=== PATIENT | female | born 1975 | race Caucasian/White ===

== ENCOUNTER 2016-09-23 22:04 | Observation (INO) | payer BC ==
[2016-09-23 22:04] VITALS: BMI 27.4
[2016-09-23] MEDS ORDERED: Sodium Chloride 0.9% 1,000 ML IV ONE (22:31)
--- NOTE | 2016-09-23 22:34 | C.PDOC ---
History Of Present Illness 41 y/o female with hx of endometriosis, s/p 10 abdominal surgeries for endometriosis, with total hysterectomy, appendectomy and cholecystectomy, hx sbo, presents to ED with approx 2 week hx of lower abdominal pressure and urinary frequency and urgency. today, pt started to vomit today (4 times) and have worse right sided abdominal pain. no fever or chills, last bm at 3 pm today. no vaginal discharge or bleeding. denies being currently sexually active. [pt also c/o 3 day hx of itchy rash to upper chest. started after pt went to gym and has spread a bit; better after po benadryl. denies any new lotions, soaps, jewelry. Time Seen by Provider: 09/23/16 22:17 Chief Complaint (Nursing): Abnormal Skin Integrity History Per: Patient History/Exam Limitations: no limitations Onset/Duration Of Symptoms: Days Current Symptoms Are (Timing): Worse Location Of Injury: Right: Abdomen Past Medical History Reviewed: Historical Data, Nursing Documentation, Vital Signs Vital Signs: Last Vital Signs Temp 98.1 F 09/24/16 05:54 Pulse 78 09/24/16 05:54 Resp 18 09/24/16 05:54 BP 111/71 09/24/16 05:54 Pulse Ox 98 09/24/16 05:57 - Medical History PMH: Anemia, Gastritis, Gastrointestinal Ulcer Denies: Depression, Chronic Kidney Disease Other PMH: endometriosis Surgical History: Appendectomy (2014), Cholecystectomy Other Surgeries: 10 surgeries for endometriosis, total hysterectomy, smal bowel obstruction - [facility] Procedures CENTRAL VENOUS CATHETER PLACEMENT WITH GUIDANCE (06/18/13) CLOSURE SKIN & SUBCUTANEOUS NEC (04/21/14) CYSTOMETROGRAM (01/23/13) CYSTOSCOPY NEC (01/23/13) INJECT/INFUSE ELECTROLYT (11/20/13) INJECT/INFUSE NEC (03/10/14) VENOUS CATHETERIZATION NEC (12/16/12) Family History: States: Unknown Family Hx - Social History Hx Tobacco Use: No Hx Alcohol Use: No Hx Substance Use: No - Immunization History Hx Tetanus Toxoid Vaccination: Yes (2011) Hx Influenza Vaccination: No Hx Pneumococcal Vaccination: No Review Of Systems Constitutional: Negative for: Fever, Chills Cardiovascular: Negative for: Chest Pain, Palpitations Respiratory: Negative for: Cough, Shortness of Breath Gastrointestinal: Positive for: Nausea, Vomiting, Abdominal Pain. Negative for : Diarrhea, Constipation Genitourinary: Positive for: Frequency. Negative for: Dysuria, Vaginal Discharge, Vaginal Bleeding Skin: Positive for: Rash (upper chest wall) Neurological: Negative for: Weakness, Numbness Physical Exam - Physical Exam Appears: Non-toxic, Other (uncomfortable) Skin: Normal Color, Warm, Dry Head: Atraumatic, Normacephalic Neck: Normal ROM Chest: Symmetrical, No Deformity, No Tenderness Cardiovascular: Rhythm Regular, No Murmur Respiratory: Normal Breath Sounds, No Rales, No Rhonchi, No Wheezing Gastrointestinal/Abdominal: Bowel Sounds, Soft, Tenderness (right lower quadrant tenderness), No Distention, No Guarding, No Rebound, Other (low transverse scar) Back: No CVA Tenderness Extremity: No Tenderness, No Pedal Edema Neurological/Psych: Oriented x3, Normal Speech, Normal Cognition, Normal Motor, Normal Sensation ED Course And Treatment - Laboratory Results Result Diagrams: 09/23/16 22:58 09/24/16 00:26 ECG: Interpreted By Me, Viewed By Me ECG Rhythm: Sinus Rhythm ECG Interpretation: Normal Rate From EC O2 Sat by Pulse Oximetry: 98 Pulse Ox Interpretation: Normal - CT Scan/US CT abd/pel with PO and IV contrast Other Rad Studies (CT/US): Read By Radiologist, Radiology Report Reviewed CT/US Interpretation: IMPRESSION: No acute findings. Nonvisualized appendix. Medical Decision Making Medical Decision Makin41 y/o female with urinary symptoms, vomiting, abdominal pain, hx multiple abdominal surgeries; will get labs ua/uc/upreg/ ct abdomen for pathology. sbo. 1105 pm pt developed erythema and itching to right upper arm at site of tourniquet. no urticaria. benadryl ordered. 316 am pt has asked for several doses opf pain medications. no longer vomiting. ct just resulted with no acute findings. pt to be put on ED observation for abdominal pain, will re-=eval in a few hours. 515 am pt resting comfortably, no vomiting. pt ate half a sandwich. pt is ready to go home. ED OBSERVATION Discharge: Yes Date of observation admission: 09/24/16 Time of observation admission: 03:25 - Observation admission statement Patient is being placed in observation because:: abdominal pain, for pain control and treatment of nausea - Goals of Observation Goals of observation are:: control of pain - Progress Note Progress Note: 09/24/16 03:25 pt tp be put onto ed obs for abdominal pain. 09/24/16 05:55 pt feeling better. not vomiting, will d/c Disposition Counseled Patient/Family Regarding: Diagnosis, Need For Followup, Rx Given - Disposition Disposition: HOME/ ROUTINE Disposition Time: 05:56 Condition: STABLE - Clinical Impression Clinical Impression: Abdominal pain
[2016-09-23] MEDS ORDERED: Iohexol 240 (50 ml) PO STA (22:57)
[2016-09-23] MEDS ORDERED: Sodium Chloride 0.9% 1,000 ML ONE (22:58)
[2016-09-23 23:01] LABS: BASO % 0.4 % (0.0-2.0); HEMATOCRIT 42.1 % (34.0-47.0); LYMPH # 2.1 K/uL (1.0-4.3); LYMPH % 43.9 % (20.0-40.0); MEAN CORPUSCULAR HEMOGLOBIN 30.3 pg (27.0-31.0); MEAN CORPUSCULAR HGB CONC 33.4 g/dL (33.0-37.0); MEAN PLATELET VOLUME 6.9 fL (7.2-11.7); MONO # 0.4 K/uL (0.0-0.8); MONO % 8.9 % (0.0-10.0); NRBC % 0.1 % (0.0-2.0); RED CELL DISTRIBUTION WIDTH 14.4 % (11.5-14.5); WHITE BLOOD COUNT 4.7 K/uL (4.8-10.8)
[2016-09-23 23:02] LABS: MEAN CELL VOLUME 90.7 fL (81.0-99.0)
[2016-09-23 23:07] LABS: RBC URINE < 1 /hpf (0-3); URINE BACTERIA RARE (<OCC); URINE BILIRUBIN NEGATIVE (NEGATIVE); URINE BLOOD NEGATIVE (NEGATIVE); URINE COLOR Yellow (YELLOW); URINE GLUCOSE (UA) NORMAL (Normal); URINE KETONE TRACE mg/dL (NEGATIVE); URINE LEUKOCYTE ESTERASE NEG Leu/uL (Negative); URINE PROTEIN NEGATIVE (NEGATIVE); URINE UROBILINOGEN NORMAL mg/dL (0.2-1.0); WBC URINE 3 /hpf (0-5)
[2016-09-23] MEDS ORDERED: Iohexol 240 (50 ml) ONE (23:07)
[2016-09-23] MEDS ORDERED: DiphenhydrAMINE 50 mg/ml Inj IVP STA (23:10)
[2016-09-23] MEDS ORDERED: DiphenhydrAMINE 50 mg/ml Inj ONE (23:14)
[2016-09-24 00:48] LABS: CHLORIDE 96 mmol/L (98-107); POTASSIUM 4.3 mmol/L (3.6-5.2); SODIUM 136 mmol/L (132-148)
[2016-09-24 00:50] LABS: BILIRUBIN,TOTAL 0.7 mg/dL (0.2-1.3); CARBON DIOXIDE 26 mmol/L (22-30); GFR AFRICAN-AMERICAN > 60
[2016-09-24 00:51] LABS: ALB/GLOB RATIO 1.3 (1.0-2.1); ALKALINE PHOSPHATASE 97 U/L (38-126); ALT/SGPT 49 U/L (9-52); AST/SGOT 65 U/L (14-36); BLOOD UREA NITROGEN 26 mg/dL (7-17); CALCIUM 9.3 mg/dl (8.6-10.4); GLUCOSE,RANDOM 84 mg/dL (65-105); TOTAL PROTEIN 8.6 g/dL (6.3-8.3)
[2016-09-24] MEDS ORDERED: Aluminum Hydroxide/Magnesium Hydroxide Susp (30 mL) ONE ×2 (01:23→02:09)
[2016-09-24] MEDS ORDERED: Iodixanol 320 MG/ML 100 ML BOTTLE IV ONE (01:27)
[2016-09-24] MEDS ORDERED: Aluminum Hydroxide/Magnesium Hydroxide Susp (30 mL) PO STA (01:49)
[2016-09-24] MEDS ORDERED: HYDROmorphone 0.5 mg/0.5 ml ISec IVP STA (02:52)
[2016-09-24] MEDS ORDERED: HYDROmorphone 1 mg/ml ISec ONE (02:59)
[2016-09-24 03:22] VITALS: O2SAT 98
[2016-09-24 05:55] VITALS: BP 111/71; PULSE 78; RESP 18; TEMP 98.1
--- NOTE | 2016-09-24 12:51 | CT ---
PROCEDURE: CT Abdomen and Pelvis with contrast HISTORY: Right lower quadrant pain. Relevant surgical history: Cholecystectomy, hysterectomy, COMPARISON: 12/07/2015 TECHNIQUE: Contrast dose: 100 cc Visipaque 320 Radiation dose: Total exam DLP = 277.97. MGy-cm. This CT exam was performed using one or more of the following dose reduction techniques: Automated exposure control, adjustment of the mA and/or kV according to patient size, and/or use of iterative reconstruction technique. FINDINGS: LOWER THORAX: Unremarkable. LIVER: Hepatic steatosis. No focal masses. No intrahepatic bile duct dilatation or perihepatic ascites. GALLBLADDER AND BILE DUCTS: Status post cholecystectomy. No abnormality is seen in the gallbladder fossa. PANCREAS: Unremarkable. No gross lesion or ductal dilatation. SPLEEN: Unremarkable. ADRENALS: Unremarkable. No mass. KIDNEYS AND URETERS: Unremarkable. No hydronephrosis. No solid mass. VASCULATURE: Unremarkable. No aortic aneurysm. BOWEL: Constipation without fecal impaction or obstruction. APPENDIX: No abnormalities to suggest acute appendicitis. No right lower quadrant inflammatory processes identified. PERITONEUM: Unremarkable. No free fluid. No free air. LYMPH NODES: Unremarkable. No enlarged lymph nodes. BLADDER: Unremarkable. REPRODUCTIVE: Prior hysterectomy BONES: No acute fracture. OTHER FINDINGS: None. IMPRESSION: No acute findings related to/accounting for the clinical presentation. Additional benign and/or incidental findings described above. No significant interval change compared to the prior examination(s). Concordant results (preliminary interpretation) provided by [facility]. Procedure Completed: 02:29 Preliminary ([facility]) Report: Dictated and Authenticated: 03:03. Final Interpretation: 12:50. September 24, 2016.
--- NOTE | 2016-09-27 12:22 | CARD ---
APPROVED REPORT EKG Measurement Heart [id number] <Conclusion> Normal sinus rhythm Normal ECG
== END 2016-09-24 05:57 | disposition home or self-care (01) ==
LOC: C.ER 22:04 → C.9OBSV 09-24 03:22
PROVIDERS: ADMIT Emergency Medicine; ATTEND Emergency Medicine
DX: R10.9 Unspecified abdominal pain (principal); N80.9 Endometriosis, unspecified; Z87.11 Personal history of peptic ulcer disease
CPT/HCPCS: 74177; 80053; 81001; 85025; 87086; 96361; 96374; 96375; 96376; 99285; G0378; J1170; J1200; J2270; J2405; J7040; Q9966; Q9967

== ENCOUNTER 2018-03-18 01:41 | Emergency (ER) | payer BC ==
[2018-03-18 01:42] VITALS: BMI 27.4
[2018-03-18 03:36] LABS: SQUAMOUS EPITHIAL 1 /hpf (0-5); URINE BILIRUBIN NEGATIVE (NEGATIVE); URINE BLOOD NEGATIVE (NEGATIVE); URINE CLARITY Hazy (Clear); URINE COLOR YELLOW (YELLOW); URINE GLUCOSE (UA) NEGATIVE (Normal); URINE LEUKOCYTE ESTERASE NEGATIVE Leu/uL (Negative); URINE PROTEIN NEGATIVE (NEGATIVE); URINE UROBILINOGEN 0.2 mg/dL (0.2-1.0)
[2018-03-18 03:37] LABS: HCG,QUALITATIVE URINE NEGATIVE (NEGATIVE)
--- NOTE | 2018-03-18 04:54 | C.PDOC ---
History Of Present Illness 42 year old female presents to the ED for evaluation of a pruritic rash to her upper chest area for one day. Patient also reports she experienced vaginal itching a few days ago, for which she applied Monistat cream to the area. Patient is also complaining of some suprapubic abdominal pain. She denies fever, chills, shortness of breath, cough, dysuria, and vaginal bleeding. Time Seen by Provider: 03/18/18 02:16 Chief Complaint (Nursing): Female Genitourinary History Per: Patient History/Exam Limitations: no limitations Onset/Duration Of Symptoms: Hrs Current Symptoms Are (Timing): Still Present Associated Symptoms: denies: Fever, Chills, Cough Additional History Per: Patient Past Medical History Reviewed: Historical Data, Nursing Documentation, Vital Signs Vital Signs: Last Vital Signs Temp 97.4 F L 03/18/18 01:45 Pulse 95 H 03/18/18 01:45 Resp 20 03/18/18 01:45 BP 133/90 03/18/18 01:45 Pulse Ox 100 03/18/18 01:45 - Medical History PMH: Anemia, Gastritis, Gastrointestinal Ulcer, Chronic Pain (leg and abd) Denies: Depression, Chronic Kidney Disease Surgical History: Appendectomy (2014), Cholecystectomy - [facility] Procedures CENTRAL VENOUS CATHETER PLACEMENT WITH GUIDANCE (06/18/13) CLOSURE SKIN & SUBCUTANEOUS NEC (04/21/14) CYSTOMETROGRAM (01/23/13) CYSTOSCOPY NEC (01/23/13) INJECT/INFUSE ELECTROLYT (11/20/13) INJECT/INFUSE NEC (03/10/14) VENOUS CATHETERIZATION NEC (12/16/12) Family History: States: Unknown Family Hx - Social History Hx Tobacco Use: No Hx Alcohol Use: Yes Hx Substance Use: No - Immunization History Hx Tetanus Toxoid Vaccination: Yes (2011) Hx Influenza Vaccination: No Hx Pneumococcal Vaccination: No Review Of Systems Constitutional: Negative for: Fever, Chills Respiratory: Negative for: Cough, Shortness of Breath Genitourinary: Positive for: Other (vaginal itching ). Negative for: Dysuria, Vaginal Bleeding Skin: Positive for: Rash (itchy, to upper chest ) Physical Exam - Physical Exam Appears: Non-toxic, No Acute Distress Skin: Warm, Dry, Rash (erythematous, maculopapular rash to upper chest, neck and axillary regions), No Other (abscess, fluctuance or vesicles ) Head: Atraumatic, Normacephalic Eye(s): bilateral: Normal Inspection Oral Mucosa: Moist Throat: Normal, No Erythema, No Exudate, No Drooling Neck: Supple Chest: Symmetrical, No Deformity, No Tenderness Cardiovascular: Rhythm Regular, No Murmur Respiratory: Normal Breath Sounds, No Rales, No Rhonchi, No Wheezing Gastrointestinal/Abdominal: Soft, Tenderness (minimal, right-sided suprapubic ), No Guarding, No Rebound Pelvic: Normal External Exam, No Vaginal Discharge Extremity: Normal ROM, Capillary Refill (less than 2 seconds ) Neurological/Psych: Oriented x3, Normal Speech, Normal Cognition ED Course And Treatment O2 Sat by Pulse Oximetry: 100 (on RA) Pulse Ox Interpretation: Normal Progress Note: Urinalysis ordered and reviewed. Benadryl PO and Prednisone PO given. Of note, patient reports that she underwent a hysterectomy few years ago due to endometriosis. Patient is resting comfortably, showing no signs of distress and is stable for discharge. Patient is advised to follow up with OBGYN and her PMD within 1-2 days for further evaluation. Advised to return to the ED if symptoms worsen. Disposition Counseled Patient/Family Regarding: Diagnosis, Need For Followup, Rx Given - Disposition Referrals: Wally Durbin Jr., MD [Medical Doctor] - Disposition: HOME/ ROUTINE Disposition Time: 04:48 Condition: STABLE Additional Instructions: PLEASE FOLLOW UP WITH PMD TAKE MOTRIN DIRECTED FOR PAIN TAKE BENADRYL DIRECTED APPLY CORTISOL CREAM RETURN TO ER IF WORSE Prescriptions: DiphenhydrAMINE [Benadryl] 25 mg PO QID #20 cap Ibuprofen [Motrin] 600 mg PO Q6H #20 tab Instructions: Contact Dermatitis (DC), Chronic Pelvic Pain (DC) Forms: [employer] (Icelandic) - Clinical Impression Clinical Impression: Dermatitis, Pelvic pain - 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 - Scribe Statement The provider has reviewed the documentation as recorded by the Scribe (Destiny Cast) All medical record entries made by the Scribe were at my direction and personally dictated by me. I have reviewed the chart and agree that the record accurately reflects my personal performance of the history, physical exam, medical decision making, and the department course for this patient. I have also personally directed, reviewed, and agree with the discharge instructions and disposition.
[2018-03-18 05:37] VITALS: TEMP 98
[2018-03-18 05:41] VITALS: BP 134/86; PULSE 92; RESP 20
[2018-03-18 06:33] VITALS: O2SAT 100
== END 2018-03-18 05:10 | disposition home or self-care (01) ==
LOC: C.ER 01:41
DX: L30.9 Dermatitis, unspecified (principal); R10.2 Pelvic and perineal pain